=== PATIENT | female | born 1940 | race Caucasian/White ===

== ENCOUNTER 2017-01-19 09:25 | Emergency (ER) | payer OTHER ==
[~2017-01-19] VITALS: Ht 157.5 cm; Wt 83.0 kg
--- NOTE | 2017-01-19 10:55 | ED GI/GU/ABDOMINAL COMPLAINT ---
History of Present Illness General Chief Complaint: General Adult Stated Complaint: CONSTIPATION Source: patient, family Exam Limitations: no limitations Vital Signs & Intake/Output Vital Signs & Intake/Output Vital Signs Date Time Temp Pulse Resp B/P Pulse O2 O2 Flow FiO2 Ox Delivery Rate 01/19 1144 101 18 153/79 96 Room Air 01/19 0933 97.7 97 18 124/79 99 Room Air Allergies Coded Allergies: omega-3 acid ethyl esters (From LOVAZA) (Intermediate, GOUT 01/19/17) Reconcile Medications Aspirin (Aspirin*) 81 MG TAB.CHEW 1 TAB PO DAILY HEART HEALTH (Reported) Docusate Sodium (Colace) 100 MG CAPSULE 1 CAP PO BID PRN STOOL SOFTENER Lisinopril/Hydrochlorothiazide (Lisinopril-Hctz 20-12.5 MG Tab) 20 MG-12.5 MG TABLET 1 TAB PO DAILY HEART (Reported) Magnesium Citrate (Citrate Of Magnesia) 300 ML SOLUTION 1 BOT PO DAILY PRN CONSTIPATION Polyethylene Glycol 3350 17 GRAM/DOSE POWDER 17 GM PO DAILY CONSTIPATION ( Reported) Triage Note: C/O CONSTIPATION X 1 WEEK, LAST BM 5 DAYS AGO. DENIES ABDOMINAL PAIN. STATES HER APPETITE HAS BEEN POOR DUE TO URI. HAS BEEN TAKEN A PRESCRIPTION LAXATIVE 6 DAYS AGO. Triage Nurses Notes Reviewed? yes ? n Is pt currently ? No HPI: Patient is a 77-year-old female presents complaining of constipation. Patient reports constipation 1 week. Patient was taking ulry-ldb-vivcfkr medication, she is unsure of the name, with no improvement. Patient's are primary doctor was placed on MiraLAX with no improvement. Last bowel movement was on Wednesday, minimal hard stool. Patient reports rectal pressure when she feels the need to go the bathroom, pain is currently 0 out of 10. Patient is passing flatus. Patient denies abdominal pain, fevers, chills, nausea, vomiting. ([place]ATA [place]) Past History Travel History Traveled to [place] past 21 day No Medical History Any Pertinent Medical History? see below for history Cardiovascular: hypertension Surgical History Surgical History: non-contributory Psychosocial History What is your primary language Romansh Tobacco Use: Never used ETOH Use: denies use Family History Hx Contributory? No (VENKATA [place]IS) Review of Systems Review of Systems Constitutional: Denies: chills, fever. EENTM: Reports: no symptoms. Respiratory: Denies: cough, short of breath. Cardiovascular: Denies: chest pain. GI: Reports: see HPI, constipation. Denies: abdominal pain, nausea, vomiting. Genitourinary: Reports: no symptoms. Musculoskeletal: Denies: back pain. Skin: Reports: no symptoms. Neurological/Psychological: Reports: no symptoms. Hematologic/Endocrine: Reports: no symptoms. Immunologic/Allergic: Reports: no symptoms. ([place]) Physical Exam Physical Exam General Appearance: well developed/nourished, alert, awake Head: atraumatic, normal appearance Eyes: Bilateral: normal appearance, PERRL, EOMI. Ears, Nose, Throat, Mouth: hearing grossly normal, moist mucous membrane Neck: normal inspection, supple, full range of motion Respiratory: normal breath sounds, chest non-tender, no respiratory distress, lungs clear Cardiovascular: regular rate/rhythm Gastrointestinal: normal bowel sounds, soft, non-tender Back: normal inspection, normal range of motion, no vertebral tenderness, no CVA tenderness Extremities: normal range of motion Neurologic/Psych: no motor/sensory deficits, awake, alert, oriented x 3, normal gait, normal mood/affect Skin: intact, normal color, warm/dry Core Measures ACS in differential dx? No Severe Sepsis Present: No Septic Shock Present: No ([place]) Progress Differential Diagnosis: bowel obstruction, fecal impaction, constipation, colitis Plan of Care: Orders Procedure Date/time Status [id number] VIEWS 01/19 1100 Active 01/19/2017 11:52:28 AM: Discussed with Dr. Henson. X-ray discussed with patient. Fleet enema ordered. Patient seen by Dr. eHnson. 01/19/2017 12:12:23 PM: No improvement after fleet enema. Discussed with patient manual disimpaction which patient is agreeable to. Manual disimpaction performed by me with MST Keiko present, small amount of very soft stool in the rectal vault that I was able to reach manually. 01/19/2017 12:46:04 PM: Patient unable to have any further bowel movements. Will start patient on stool softener and magnesium citrate. Patient is afebrile, no tenderness on abdominal exam. Appears to discharge. (VENKATA L[place]IS) Diagnostic Imaging: Viewed by Me: Radiology Read. Discussed w/RAD: Radiology Read. Initial ED EKG: none Comments: PATIENT: JUAN JOSE COBOS PRESENT AGE: 77 PATIENT ACCOUNT NO: [id number] : 40 LOCATION: [facility] ORDERING PHYSICIAN: VENKATA REYES SERVICE DATE: 01/19/17 EXAM TYPE: RAD - [id number] VIEWS EXAMINATION: XR ABDOMEN MULTIPLE VIEWS CLINICAL INDICATION: Constipation. No bowel movement for 3 to 4 days. COMPARISON: None TECHNIQUE: Supine and upright frontal view of the abdomen and pelvis. Total of 3 images. FINDINGS: Extensive fecal residual is noted throughout the entire large bowel with distended rectum containing fecal matter. No abnormal air-fluid levels suggestive of obstruction is visualized. No abnormal soft tissue mass or calcification present. Degenerative changes are noted in the spine. The visualized lung bases appear clear. IMPRESSION: Extensive fecal residual throughout the entire large bowel including the rectum, consistent with clinically known constipation. No radiographic detectable superimposed bowel obstruction. DICTATED BY: SHEILA PEOPLES MD DATE/TIME DICTATED:01/19/171202 ALLERGIST/MD:SAMIR DATE/TIME TRANSCRIBED:01/19/171202 CONFIDENTIAL, DO NOT COPY WITHOUT APPROPRIATE AUTHORIZATION. <Electronically signed in Other Vendor System> SIGNED BY: SHEILA PEOPLES MD 01/19/171206 ([place]) Departure Departure Disposition: HOME OR SELF CARE Condition: Stable Clinical Impression Primary Impression: Constipation Qualifiers: Constipation type: unspecified constipation type Qualified Code: K59.00 - Constipation, unspecified Referrals: JESSE PAREDES APRN (PCP/Family) Additional Instructions: Take colace and Magnesium citrate as directed. Do not take any additional magnesium citrate if you have 2 or more bowel movements in a day. Drink plenty of fluids. Tylenol as directed for pain. Follow-up with your primary care provider this week for further evaluation. Departure Forms: Customer Survey General Discharge Information Prescriptions: Current Visit Scripts Magnesium Citrate (Citrate Of Magnesia) 1 BOT PO DAILY PRN CONSTIPATION #3 BOT Docusate Sodium (Colace) 1 CAP PO BID PRN STOOL SOFTENER #60 CAP (VEN[place]ATA [place]) PA/MANAGER SKILLED Co-Sign Statement Statement: ED Attending supervision documentation- [X] I saw and evaluated the patient. I have also reviewed all the pertinent lab results and diagnostic results. I agree with the findings and the plan of care as documented in the PA's/MANAGER SKILLED's documentation. [] I have reviewed the ED Record and agree with the PA's/MANAGER SKILLED's documentation. [] Additions or exceptions (if any) to the PAs/MANAGER SKILLED's note and plan are summarized below: [] (PAIGE AGUDELO,JOSEF Arriaga)
[2017-01-19] MEDS ORDERED: POLYETHYLENE G255 GM PO (11:06)
[2017-01-19] MEDS ORDERED: LISINOPRIL-HCT1 EACH PO (11:06)
[2017-01-19] MEDS ORDERED: ASPIRIN81 M4 PO (11:07)
[2017-01-19 11:44] VITALS: BP 153/79
--- NOTE | 2017-01-19 12:07 | RADIOLOGY REPORT ---
EXAMINATION: XR ABDOMEN MULTIPLE VIEWS CLINICAL INDICATION: Constipation. No bowel movement for 3 to 4 days. COMPARISON: None TECHNIQUE: Supine and upright frontal view of the abdomen and pelvis. Total of 3 images. FINDINGS: Extensive fecal residual is noted throughout the entire large bowel with distended rectum containing fecal matter. No abnormal air-fluid levels suggestive of obstruction is visualized. No abnormal soft tissue mass or calcification present. Degenerative changes are noted in the spine. The visualized lung bases appear clear. IMPRESSION: Extensive fecal residual throughout the entire large bowel including the rectum, consistent with clinically known constipation. No radiographic detectable superimposed bowel obstruction.
[2017-01-19] MEDS ORDERED: COLACE100 M1 PO (12:43)
[2017-01-19] MEDS ORDERED: CITRATE OF MAG300 ML PO (12:43)
== END 2017-01-19 12:53 ==
LOC: ERH 09:25
DX: K59.00 Constipation, unspecified (principal)
CPT/HCPCS: 74020